=== PATIENT | male | born 1985 | race Two or more races ===

== ENCOUNTER 2021-03-16 17:59 | Emergency (ER) | payer OTHER ==
[~2021-03-16] VITALS: Ht 165.1 cm; Wt 99.8 kg
--- NOTE | 2021-03-16 18:11 | NUR ---
Attempted to triage, pt was not found in ER waiting room or outside ER.
--- NOTE | 2021-03-16 19:15 | NUR ---
Patient waiting outside of ER with no distress noted.
--- NOTE | 2021-03-16 20:14 | NUR ---
Patient was called to be placed in room but was not found in the waiting room or outside of ER.
--- NOTE | 2021-03-16 20:20 | NUR ---
PATIENT WAS CALLED TO PLACED IN ROOM BUT WAS NOT PRESENT. PATIENT WAS NOT SEEN BY [facility] BUT HE WAS TRIAGED.
== END 2021-03-16 20:30 | disposition left against medical advice (07) ==
LOC: ER 18:05
DX: Z53.21 Procedure and treatment not carried out due to patient leaving prior to being seen by health care provider (principal)